=== PATIENT | female | born 1990 | race Two or more races ===

== ENCOUNTER → 2021-07-03 09:36 | Outpatient (CLI) | payer OTHER | END | disposition home or self-care (01) | LOC: LAB 09:36 | PROVIDERS: ATTEND Colon & Rectal Surgery | DX: R07.89 Other chest pain (principal); K59.09 Other constipation; R63.4 Abnormal weight loss; N39.0 Urinary tract infection, site not specified; R73.09 Other abnormal glucose; E55.9 Vitamin D deficiency, unspecified; D53.8 Other specified nutritional anemias ==

== ENCOUNTER 2022-03-19 09:31 | Outpatient (CLI) | payer OTHER | END 2022-03-19 10:39 | disposition home or self-care (01) | LOC: TOM 09:31 | PROVIDERS: ATTEND Colon & Rectal Surgery | DX: R10.84 Generalized abdominal pain (principal) ==

== ENCOUNTER 2022-10-26 10:55 | Outpatient (CLI) | payer OTHER | END 2022-10-26 10:57 | disposition home or self-care (01) | LOC: RAD 10:55 | PROVIDERS: ATTEND Colon & Rectal Surgery | DX: M54.2 Cervicalgia (principal) ==